=== PATIENT | male | born 1950 | race Two or more races ===

== ENCOUNTER 2019-10-01 18:11 | Inpatient (IN) | payer BC, MEDICAID ==
[~2019-10-01] VITALS: Ht 188 cm; Wt 101.9 kg
--- NOTE | 2019-10-01 18:03 | NUR ---
Telemetry admit from [facility] admitted to Telemetry unit after SBAR received. Patient oriented to Shaneka wheeler RN, unit, room, bed, and unit policies regarding patient care and visiting hours. Patient verbalized understanding. Instructed patient on POC, fall precautions and to call for assistance. Patient verbalized understanding. Patient has 4 incisions located to the abdomen. Dressing is clean,dry and intact. NGT to the left nare is patent and connected to LIS per MD order. Draining green liquid. Patient has a generalized rash on body. Patient stated "I've had it for a little while. It does itch. I think it's just from all of the hospital stuff. I'm not too sure. They gave me Benadryl at the other hospital." Respirations are even and unlabored, no distress noted. Call light within reach.
[~2019-10-01 18:11] MED LIST: ALPR1TAB7 PO; CARI350T22 PO; GEMF600T7 PO; NOR10T PO
--- NOTE | 2019-10-01 18:24 | NUR ---
Contacted Dr. Villafuerte to notify MD of patient's admit Message left for .
--- NOTE | 2019-10-01 18:25 | NUR ---
RE: Generalized body rash Notified Dr. Briones of patient's generalized body rash with report of itching. verbalized understanding. Order received and read back to verify.
[2019-10-01] MEDS ORDERED: NITROGLYCERIN 0.4 MG SL TAB SL PRN (18:30)
[2019-10-01] MEDS ORDERED: MORPHINE SULF INJ 2 MG/ML SYRINGE 1ML IV PRN (18:30)
[2019-10-01] MEDS ORDERED: hydrALAZINE HCL 20 MG/ML VL IV PRN (18:30)
[2019-10-01] MEDS ORDERED: AMIODARONE HCL 900 MG in DEXTROSE 500 ML IV SCH ×2 (18:45→20:15)
[2019-10-01] MEDS: SODIUM CHLORIDE 0.9% 1,000 ML IV SCH (19:04)
[2019-10-01 19:15] LABS: Basophils # (auto) 0.2 uL; Basophils % (auto) 0.8 % (0.0-2.0); Eosinophils # (auto) 0.5 uL; Eosinophils % (auto) 2.6 % (0.0-7.0); Hematocrit 40.7 % (41.0-53.0); Hemoglobin 13.9 g/dL (13.5-17.5); Lymphocytes # (auto) 1.5 uL; Lymphocytes % (auto) 7.6 % (10.0-50.0); Mean Corpuscular Volume 91.2 fL (80.0-100.0); Monocytes # (auto) 2.5 uL; Monocytes % (auto) 12.3 % (0.0-12.0); Neutrophils # (auto) 15.4 uL; Neutrophils % (auto) 76.7 % (37.0-80.0); Platelet Count (auto) 416 10^3/uL (140-450); Red Blood Cells 4.47 10^6/uL (4.5-5.90); Red Cell Distribution Width 13.5 % (11.8-14.3); White Blood Cell 20.1 10^3/uL (4.4-10.8)
--- NOTE | 2019-10-01 19:18 | NUR ---
Care endorsed to CLAUDIA Dalton. Patient resting in bed with even and unlabored respirations, no distress noted. NGT to LIS per MD order. Patient tolerated well. Draining green liquid. Fall precautions in place with call light within reach. Visitors at bedside. Admission endorsed to CLAUDIA Dalton, and roxana Aguilar RN. Both parties verbalized understanding.
--- NOTE | 2019-10-01 19:25 | NUR ---
OPENING NOTE - NOC SHIFT PATIENT IS DIRECT ADMIT BY DR ISRAEL FROM [facility]. PATIENT IS IN BED, BED IS LOCKED AT LOWEST. BED RAILS UP X2 AND HEAD OF BED IS UP >45 DEGREES FOR SAFETY PRECAUTIONS. BEDSIDE TABLE WITHIN REACH, CALL LIGHT WITHIN REACH, PERSONAL BELONGINGS WITHIN REACH. PATIENT HAS CONTINUOUS INTERMITTENT SUCTION NG TUBE TO LEFT NOSTRIL. SUCTION IS PATENT. LIQUID IS DARK GREEN. PATIENT IS RUNNING AMIODARONE DRIP FROM [facility] AT 1MG/MIN; DR ISRAEL IS AWARE. WILL CALL JHONATAN HERRERA TO CLARIFY AMIODARONE DRIP ORDER. WILL CONTINUE TO MONITOR.
[2019-10-01 19:28] LABS: Albumin 2.7 g/dL (3.4-5.0); Calcium 8.6 mg/dL (8.5-10.1); INR 1.07 (0.9-1.15); Potassium 3.7 mmol/L (3.5-5.1)
--- NOTE | 2019-10-01 19:30 | NUR ---
NG LEFT NARE CONNECTED TO LOW CONTINUOUS SUCTION 900 ML DARK GREEN CLEAR LIQUID
[2019-10-01 19:31] LABS: BUN/Creatinine Ratio 26.2; Bilirubin, Total 2.7 mg/dL (0.2-1.0); Total Protein 6.6 g/dL (6.4-8.2)
[2019-10-01 20:00] VITALS: BP 125/75
--- NOTE | 2019-10-01 20:40 | NUR ---
NG LEFT NARE CONNECTED TO LOW CONTINUOUS SUCTION 900 ML DARK GREEN CLEAR LIQUID
--- NOTE | 2019-10-01 20:44 | NUR ---
PAGED TO CLARIFY ORDERS.
--- NOTE | 2019-10-01 21:01 | NUR ---
2ND PAGE TO ADMITTING MD TO CLARIFY AMIODARONE DRIP ORDERS.
--- NOTE | 2019-10-01 21:08 | NUR ---
RECEIVED CALL FROM DR DIAZ COVERING FOR JHONATAN. DR DIAZ STATED THAT SHE WILL CONTACT DR ISRAEL AND CLARIFY HIS ORDERS BECAUSE SHE IS NOT SURE. DR DIAZ STATED THAT SHE WILL CALL ME BACK.
--- NOTE | 2019-10-01 21:14 | NUR ---
DR DIAZ CALLED BACK TO CONFIRM AMIODARONE DRIP TO RUN FOR 6 HOURS FROM WHEN IT STARTED AT [facility] AT 1625 AT 1 MG/MIN THEN AT 0.5MG/MIN
[2019-10-01] MEDS: ONDANSETRON HCL 4 MG/2 ML VIAL IV PRN (21:32)
[2019-10-01] MEDS: HYDROmorphone HCL 2 MG/ML VL IV PRN (21:32)
--- NOTE | 2019-10-01 21:50 | NUR ---
WOUND INCISION PICTURES TO RIGHT ABDOMEN TAKEN WOUND FORM SIGNED AND FILED. PATIENT STATES INCISIONS ARE FROM PROCEDURE DONE AT [facility]. PATIENT IS A DIRECT ADMIT FROM [facility] TODAY.
[2019-10-01] MEDS ORDERED: PRAV20TA3 PO (21:54)
[2019-10-01] MEDS ORDERED: RIVA10TA PO (21:54)
[2019-10-01] MEDS ORDERED: ATEN-60 PO (21:54)
[2019-10-01] MEDS ORDERED: CLON0.1T PO (21:54)
[2019-10-01] MEDS ORDERED: CLON0.2D6 PO (21:54)
[2019-10-01] MEDS ORDERED: EZET10TA22 PO (21:54)
[2019-10-01] MEDS ORDERED: CHOL20007 PO (21:54)
--- NOTE | 2019-10-01 22:00 | NUR ---
NG LEFT NARE CONNECTED TO LOW CONTINUOUS SUCTION 700 ML DARK GREEN CLEAR LIQUID
[2019-10-01 22:10] VITALS: BP 125/75
--- NOTE | 2019-10-01 22:25 | NUR ---
AMIODARONE DRIP AT 0.5 MG/MIN PER MD ORDERS.
--- NOTE | 2019-10-01 22:30 | NUR ---
MRSA NARES SWAB SENT TO LAB
[2019-10-02] VITALS (8 sets, daily range): BP systolic 137–153; BP diastolic 76–147
--- NOTE | 2019-10-02 00:46 | NUR ---
NG LEFT NARE CONNECTED TO LOW CONTINUOUS SUCTION 600 ML DARK GREEN CLEAR LIQUID
[2019-10-02] MEDS: AMIODARONE HCL 900 MG in DEXTROSE 500 ML IV SCH (02:10)
[2019-10-02] MEDS: HYDROmorphone HCL 2 MG/ML VL IV PRN ×4 (02:59→21:59)
[2019-10-02] MEDS: ONDANSETRON HCL 4 MG/2 ML VIAL IV PRN ×3 (02:59→16:02)
--- NOTE | 2019-10-02 03:05 | NUR ---
PAGED FOR DR ISRAEL; DR DIAZ IS DOPE AND FABRIC WORKER FOR DR ISRAEL. DR DIAZ IS AWARE THAT PATIENT HAS BEEN HOLDING HR OF 150's WITH AFIB DR DIAZ STATED TO MONITOR PATIENT BUT NO ORDERS WERE RECEIVED. DR DIAZ AWARE THAT EKG WAS DONE AND THAT PATIENT IS ON AMIODARONE DRIP AT 0.5MG/MIN.
--- NOTE | 2019-10-02 03:05 | NUR ---
NG LEFT NARE CONNECTED TO LOW CONTINUOUS SUCTION 900 ML DARK GREEN CLEAR LIQUID
--- NOTE | 2019-10-02 03:15 | NUR ---
PATIENT UP TO BATHROOM. STEADY GAIT.
--- NOTE | 2019-10-02 05:45 | NUR ---
NG LEFT NARE CONNECTED TO LOW CONTINUOUS SUCTION 850 ML DARK GREEN CLEAR LIQUID.
[2019-10-02 06:07] LABS: Basophils # (auto) 0 uL; Basophils % (auto) 0.3 % (0.0-2.0); Eosinophils # (auto) 0.4 uL; Eosinophils % (auto) 2.3 % (0.0-7.0); Hematocrit 38.5 % (41.0-53.0); Lymphocytes # (auto) 1.1 uL; Lymphocytes % (auto) 6.5 % (10.0-50.0); Mean Corpuscular Hemoglobin 30.5 pg (28.0-32.0); Mean Corpuscular Hgb Conc. 33.8 g/dL (32.0-36.0); Mean Corpuscular Volume 90.4 fL (80.0-100.0); Monocytes # (auto) 1.8 uL; Monocytes % (auto) 11.1 % (0.0-12.0); Neutrophils # (auto) 13.1 uL; Neutrophils % (auto) 79.8 % (37.0-80.0); Nucleated Red Blood Cells % 0.1 %; Platelet Count (auto) 410 10^3/uL (140-450); Red Blood Cells 4.26 10^6/uL (4.5-5.90); Red Cell Distribution Width 13.6 % (11.8-14.3); White Blood Cell 16.4 10^3/uL (4.4-10.8)
[2019-10-02] MEDS: SODIUM CHLORIDE 0.9% 1,000 ML IV SCH ×2 (06:12→19:30)
[2019-10-02 06:27] LABS: Albumin 2.4 g/dL (3.4-5.0); Potassium 3.1 mmol/L (3.5-5.1)
[2019-10-02 06:34] LABS: BUN/Creatinine Ratio 27.1; Bilirubin, Total 2.5 mg/dL (0.2-1.0); Total Protein 5.7 g/dL (6.4-8.2)
--- NOTE | 2019-10-02 07:20 | NUR ---
ENDORSED PATIENT CARE TO DAY SHIFT NURSE
[2019-10-02] MEDS ORDERED: fentaNYL CITRATE 100 MCG/2 ML VL IV ONE (07:30)
[2019-10-02] MEDS ORDERED: LIDOCAINE VISCOUS 2% 15ML UD PO ONE (07:30)
[2019-10-02] MEDS ORDERED: MIDAZOLAM HCL 1MG/1ML-2 ML VIAL IV ONE (07:30)
--- NOTE | 2019-10-02 07:30 | NUR ---
PT AWAKE, ALERT, ORIENTED x4 REPORTS DISCOMFORT TO ABDOMINAL INCISIONS, 4 IN TOTAL, ONE INCISION OPEN TO AIR. 3 DRESSINGS CDI ABDOMINAL BINDER IN PLACE. NGT TO LEFT NARES TO LCS 400ML OF BROWN-GREEN FLUID IN COLLECTING CHAMBER. PT HR: 153 DENIES CHEST PAIN, PALPITATIONS. PT ON AMIODARONE DRIP AT 16.6ML/HR. EFFORTLESS BREATHING ON ROOM AIR. BED LOCKED AND IN LOWEST POSITION, CALL LIGHT WITHIN REACH. WILL CONTINUE TO MONITOR.
--- NOTE | 2019-10-02 08:00 | NUR ---
PT TRANSPORTED TO [facility] FOR PLANNED PROCEDURE. PT TRANSPORTED WITH AMIODARONE AND NS, NGT CLAMPED.
--- NOTE | 2019-10-02 09:10 | NUR ---
PT BACK FROM [facility]. APPEARS CALM, NO ACUTE DISTRESS NOTED. HR: 130's REPORTS PAIN TO ABDOMEN AND NAUSEA, NGT TO LEFT NARES CONNECTED TO LCS PER ORDER. IV FLUIDS RESUMED AND KCL INFUSION INITIATED PER EMAR. 0945: PT MEDICATED FOR PAIN AND NAUSEA PER EMAR. TOLERATED WELL. CALL LIGHT WITHIN REACH. FAMILY AT BEDSIDE, WILL CONTINUE TO MONITOR.
[2019-10-02] MEDS: POTASSIUM CHL 20MEQ/100ML 100 ML IV SCH ×3 (09:18→14:05)
[2019-10-02] MEDS: ENOXAPARIN SOD 80 MG/0.8ML SYRINGE SC SCH ×2 (09:21→21:53)
--- NOTE | 2019-10-02 10:25 | NUR ---
WOUND CARE NOTE: Wound care into see patient per wound care request regarding abdominal incision that are noted present on admission. Bedside nurse took photograph of patient's wounds upon admission for reference. Patient is 69 years old male admitted for Chest Pain. Patient is resting in bed in Rm. 292B. Patient is awake, alert and oriented. He's self turn and reposition and his Jorge score is 19. Patient is in no stated pain at this time. Patient came in with four stapled incision to medial and Rt abdominal area s/p cholecystectomy at [facility] " a week ago". Wounds are well approximated with isaac intact, misty wound is red with some ecchymotic area, minimal serosanguineous drainage noted on dressing, no odor noted. Bedside nurse initiated cleaning wounds with NS and covered with dry sterile dressing. No other wound noted. Patient tolerated well. No further wound care monitoring needed at this time. RECOMMENDATION: Nursing to continue with Daily/PRN dressing change to abdominal wounds per MD order, redistribute pressure points with pillows, reconsult for active wound, pressure injury, low Jorge score of 12 and below. Addendum: 10/02/19 at 1451 by Nova Reddy RN Amended: Links added.
--- NOTE | 2019-10-02 13:59 | NUR ---
PER DR. HENLEY AMIODARONE DRIP TO CONTINUE AT CURRENT RATE. RECEIVED ORDER FOR IV CARDIZEM AND COMMUNICATION ORDERS FOR POTASSIUM AND MAGNESIUM LABORATORY Q12H ORDERS RECEIVED AND READ BACK. WILL CONTINUE TO MONITOR.
[2019-10-02] MEDS: DILTIAZEM HCL 25 MG/5 ML VIAL IV SCH ×3 (14:40→23:12)
--- NOTE | 2019-10-02 16:30 | NUR ---
PATIENT HAD BM LOOSE WITH SEDIMENTS- BROWN-GREEN IN APPEARANCE. WILL CONTINUE TO MONITOR.
--- NOTE | 2019-10-02 19:00 | NUR ---
Opening Shift Note Assumed care of patient, awake and alert. No S/S of distress/SOB or pain. Instructed on POC and to call for assist PRN, will continue to monitor for changes Q1hr and PRN. Bed in lowest position possible. Call light within reach. Pt NPO with only ice chips. Cardioversion in the morning planned.
--- NOTE | 2019-10-02 19:30 | NUR ---
Pt took off her own telemetry box. Addendum: 10/02/19 at 2128 by Breonna Madrigal RN LEIGHANN PT, pt is listening per protocol.
--- NOTE | 2019-10-02 19:45 | NUR ---
AMA Note [facility] states they want to leave the hospital Against Medical Advice (AMA). Patient encouraged to stay for further treatment/stabilization. Offered to the pt to call doctor to come see her, but pt and family stated that they could not wait anymore and just wanted to leave. Family stated that she had a doctors appointment in the morning and needed to go home PEREZ. Notified of patient's wishes. Patient advised of the risks and benefits of leaving AMA. Patient verbalized understanding. Patient encouraged to return to the ER if symptoms do not improve or worsen. Addendum: 10/02/19 at 2127 by Breonna Madrigal RN WRONG PT, pt is here doing tx as directed per doctor.
[2019-10-02 22:32] LABS: Magnesium 1.9 mg/dL (1.6-2.6)
[2019-10-02 22:39] LABS: Potassium 2.9 mmol/L (3.5-5.1)
--- NOTE | 2019-10-02 23:00 | NUR ---
Called Dr Villafuerte Pt had lab draws for Magnesium levels and Potassium levels at 2200. Magnesium level came back 1.9, which was below the intended level of 2.0 Potassium level cam back 2.9, which was below the intended level of 4.[address] Villafuerte these levels as well as a heart rate in the 150s. Dr Villafuerte orders 60mEq Potassium IV, to be repeated at 0600, 2mg magnesium IV, Lopressor 5mg IV q2h unless SBP goes below 100, and the okay to give Cardizem at 2300, 1 hour earlier than scheduled. While giving the Cardizem, pts HR went from 151 to 130. Will continue to monitor pts HR and BP.
[2019-10-02] MEDS: MAGNESIUM SULFATE 1GM/100ML 100 ML IV SCH (23:25)
--- NOTE | 2019-10-02 23:40 | NUR ---
PT complained of itching. Pt stated that he had itching on his legs and arms. Pt stated that he has had this since being in the hospital. Gave pt Benadryl and antifungal cream to help with the itching.
[2019-10-02] MEDS: diphenhdrAMINE HCL 50 MG/1 ML VL IV PRN (23:46)
[2019-10-03] MEDS: METOPROLOL TARTRATE 1MG/1ML-5ML VIAL IV SCH ×12 (00:18→22:01)
[2019-10-03] MEDS: MAGNESIUM SULFATE 1GM/100ML 100 ML IV SCH (00:41)
[2019-10-03] MEDS: POTASSIUM CHL 20MEQ/100ML 100 ML IV SCH ×3 (01:58→06:39)
--- NOTE | 2019-10-03 02:00 | NUR ---
Potassium started at 0200 pt complained of burning pain upon starting the K-rider, lowered starting rate to 20ml/hr. Waited until burning subsided and slowly increased. Pt was able to tolerate 50ml/hr 15 minutes after starting the k-rider. Will continue to monitor pt.
[2019-10-03] MEDS: AMIODARONE HCL 900 MG in DEXTROSE 500 ML IV SCH (02:13)
[2019-10-03] MEDS: ONDANSETRON HCL 4 MG/2 ML VIAL IV PRN ×4 (03:03→20:05)
[2019-10-03] MEDS: HYDROmorphone HCL 2 MG/ML VL IV PRN ×4 (03:09→20:06)
--- NOTE | 2019-10-03 04:20 | NUR ---
Started second K-rider bag Pt complained of burning sensation upon starting the second k-rider, lowered starting rate to 20ml/hr. Waited until burning subsided and slowly increased. Pt tolerated 50ml/hr after about 15 minutes after starting the k-rider. Will continue to monitor pt.
--- NOTE | 2019-10-03 04:25 | NUR ---
Antifungal/itching cream applied Pt complaint of itching on his right arm. Applied antifungal anti-itching cream to area. Pt stated that the cream is helping.
[2019-10-03 05:11] LABS: Basophils # (auto) 0.1 uL; Basophils % (auto) 0.8 % (0.0-2.0); Eosinophils # (auto) 0.8 uL; Eosinophils % (auto) 5.8 % (0.0-7.0); Hematocrit 39.1 % (41.0-53.0); Hemoglobin 13.2 g/dL (13.5-17.5); Lymphocytes # (auto) 1.4 uL; Lymphocytes % (auto) 9.8 % (10.0-50.0); Mean Corpuscular Hemoglobin 30.8 pg (28.0-32.0); Mean Corpuscular Hgb Conc. 33.6 g/dL (32.0-36.0); Mean Corpuscular Volume 91.7 fL (80.0-100.0); Monocytes # (auto) 1.7 uL; Monocytes % (auto) 12.1 % (0.0-12.0); Neutrophils # (auto) 10.2 uL; Neutrophils % (auto) 71.5 % (37.0-80.0); Nucleated Red Blood Cells % 0.1 %; Platelet Count (auto) 443 10^3/uL (140-450); Red Blood Cells 4.27 10^6/uL (4.5-5.90); Red Cell Distribution Width 13.4 % (11.8-14.3); White Blood Cell 14.2 10^3/uL (4.4-10.8)
[2019-10-03 05:30] LABS: Potassium 3.4 mmol/L (3.5-5.1)
[2019-10-03 05:37] LABS: Albumin 2.5 g/dL (3.4-5.0); BUN/Creatinine Ratio 30.4; Bilirubin, Total 2.2 mg/dL (0.2-1.0); Calcium 7.8 mg/dL (8.5-10.1); Total Protein 6.1 g/dL (6.4-8.2)
[2019-10-03] MEDS: DILTIAZEM HCL 25 MG/5 ML VIAL IV SCH ×3 (05:41→17:32)
[2019-10-03 05:52] VITALS: BP 157/92
--- NOTE | 2019-10-03 07:00 | NUR ---
Closing note Pt awake and alert. Pt stated that she had pain, gave tylenol with codeine, Will continue to monitor. Pt is lowest possible position with 2xrails up. Call light within reach. Will endorse pt to day shift RN. Addendum: 10/03/19 at 0702 by Breonna Madrigal RN WRONG PT: correct narrative as follows. Pt asleep, no s/s of SOB or pain. pt in lowest position possible with 2x rails up. Call light within reach. Running last k-rider to total 60mEq as ordered per MD. Will endorse pt to day shift RN.
[2019-10-03] MEDS: SODIUM CHLORIDE 0.9% 1,000 ML IV SCH ×2 (08:31→20:39)
--- NOTE | 2019-10-03 08:50 | NUR ---
Zofran Inj given for nausea, Dilaudid Inj 0.5 mg given for severe pain.
--- NOTE | 2019-10-03 08:50 | NUR ---
BP = 165/93. Apresoline Inj given for SBP>160.
[2019-10-03 09:00] VITALS: BP 165/93
--- NOTE | 2019-10-03 09:02 | NUR ---
Richard Mckinley called back. ordered another abdominal x ray for today. Page her for the results.
--- NOTE | 2019-10-03 09:15 | NUR ---
Dr. Villafuerte at bedside. explained to patient and family that patient may aspirate if he's still having NGT output, will find out this afternoon if Cardioversion will proceed today. Dr. Villafuerte ordered to follow up with Richard Mckinley regarding GI, give only Lovenox if okay with Dr. Kowalski.
--- NOTE | 2019-10-03 09:38 | NUR ---
Dr. Rodriguez called. made aware Richard Mckinley has seen the patient for GI, ordered Abdominal x ray. Dr. Villafuerte will decide this afternoon if he will do the Cardioversion today. Dr. Rodriguez ordered chest x ray, Rocephin 1 gm IVPB daily, UA, Potassium and magnesium level.
[2019-10-03] MEDS: ENOXAPARIN SOD 80 MG/0.8ML SYRINGE SC SCH ×2 (10:00→22:00)
[2019-10-03 10:10] LABS: Urine Amorphous Crystal FEW /hpf (None Seen); Urine Bacteria NONE SEEN /hpf (None Seen); Urine Blood Negative /uL (Negative); Urine Specific Gravity 1.017 (1.001-1.035); Urine WBC 2 /hpf (0 - 3)
[2019-10-03 10:10] LABS: Magnesium 2.2 mg/dL (1.6-2.6); Potassium 3.6 mmol/L (3.5-5.1)
--- NOTE | 2019-10-03 11:28 | NUR ---
Makenna Robb at bedside. ordered Lactic Acid, Urgent US Abdomen.
--- NOTE | 2019-10-03 11:32 | NUR ---
Called Richard Mckinley Spoke with Ludmila. Ludmila to page Dr. Kowalski to call back regarding the Abdomen X ray results.
--- NOTE | 2019-10-03 12:16 | NUR ---
Called Pharmacy for Lopressor IV and Cardizem Inj, not available in the Pyxis.
--- NOTE | 2019-10-03 12:35 | NUR ---
Patient walked to the bathroom. Daughter at bedside.
--- NOTE | 2019-10-03 12:44 | NUR ---
Patient had a bowel movement in the bathroom. Large, soft dark brown stools noted in the toilet bowl. Daughter at bedside.
--- NOTE | 2019-10-03 12:50 | NUR ---
BP = 149/83, Heart Rate = 151, RR = 18, O2 Sat = 95% on room air. Daughter at bedside.
[2019-10-03 13:00] VITALS: BP 134/76
--- NOTE | 2019-10-03 14:00 | NUR ---
Transferred patient via bed from Room 292B to Room 286B.
--- NOTE | 2019-10-03 14:15 | NUR ---
Patient stated he's nauseous, in severe abdominal pain. Zofran Inj given for nausea, Dilaudid Inj given for severe pain. Daughter at bedside.
--- NOTE | 2019-10-03 14:53 | NUR ---
Called Richard Mckinley Spoke with Clara. Roberts to page Dr. Kowalski again.
--- NOTE | 2019-10-03 15:10 | NUR ---
Richard Mckinley called back. made aware patient had a bowel movement today, large soft to loose stools noted. Read the Abdominal x ray results. Dr. Kowalski ordered another abdominal x ray for tomorrow, continue on NGT on low intermittent suction, NPO except ice chips.
[2019-10-03 16:29] VITALS: BP 150/88
--- NOTE | 2019-10-03 16:40 | NUR ---
Patient is upset, wanted to remove his NG tube, he's hungry. Daughter is angry. Explained to patient Dr. Kowalski, Antionette ordered to keep him on nothing by mouth except ice chips, keep on NG Tube on low intermittent suction, will have another abdominal x ray tomorrow.
--- NOTE | 2019-10-03 16:50 | NUR ---
Daughter is angry that it's noisy in the room, there's a kid keep running in the room. Daughter said her father has to rest but unable to, she wants her father to be transferred to another room. Female family member of Bed A heard and verbalized "Are you talking about my son? He's autistic!" Patient Bed B's daughter stated that she should have left the kid at home. Called Charge Nurse Gutierrez. Called Security.
--- NOTE | 2019-10-03 17:15 | NUR ---
NG Tube on low intermittent suction. About 800 ml of dark, greenish fluid emptied from the NG Tube canister. Changed the NGT canister. Daughter at bedside.
--- NOTE | 2019-10-03 17:37 | NUR ---
Dark, greenish fluid at 200 ml on NG Tube canister. NG Tube on low intermittent suction.
--- NOTE | 2019-10-03 19:00 | NUR ---
Opening Shift Note Assumed care of patient, awake and alert. Pt stated that he had a pain of 10/10 in his abdomen region, no SOB noted. NG tube on continuous suction and pulling green fluid out. Instructed on POC and to call for assist PRN, will continue to monitor for changes Q1hr and PRN. Bed in lowest possible position, call light within reach.
[2019-10-03 20:00] VITALS: BP 117/79
[2019-10-03 21:36] VITALS: BP 117/70
[2019-10-03 22:44] LABS: Potassium 3.8 mmol/L (3.5-5.1)
[2019-10-04] MEDS: HYDROmorphone HCL 2 MG/ML VL IV PRN ×6 (00:03→20:41)
[2019-10-04] MEDS: METOPROLOL TARTRATE 1MG/1ML-5ML VIAL IV SCH ×12 (00:03→22:50)
[2019-10-04] MEDS: DILTIAZEM HCL 25 MG/5 ML VIAL IV SCH ×3 (00:04→12:45)
--- NOTE | 2019-10-04 00:10 | NUR ---
Called/paged Dr. Garcia, who is covering Dr. Briones called re: Potassium of 3.6 and NGT outuput of brown/red liquid and order to hold lovenox. Received orders, hold lovenox and get H&H. Continue care.
[2019-10-04] MEDS: AMIODARONE HCL 900 MG in DEXTROSE 500 ML IV SCH (02:07)
[2019-10-04 02:44] LABS: Hematocrit 37.2 % (41.0-53.0); Hemoglobin 12.5 g/dL (13.5-17.5)
[2019-10-04] MEDS: ONDANSETRON HCL 4 MG/2 ML VIAL IV PRN ×5 (04:13→22:51)
[2019-10-04 05:40] VITALS: BP 150/96
--- NOTE | 2019-10-04 06:10 | NUR ---
Code Assist note. Assisted patient to the rest room and back to bed. As patient was getting to bed, patient started losing consciousness. Could not assist patient back to bed so this RN assisted patient to floor in a sitting position. Patient determined to be at high risk for Code Blue due to cardiac/respiratory status. Code assist called. Addendum: 10/04/19 at 0657 by JYOTI MALDONADO RN RN WRONG PATIENT!
--- NOTE | 2019-10-04 06:56 | NUR ---
NG output Patient had a total of 4L of Output throughout the shift.
--- NOTE | 2019-10-04 07:00 | NUR ---
Closing note endorsed pt over to CLAUDIA Mena.
[2019-10-04 08:00] VITALS: BP 152/87
[2019-10-04] MEDS: SODIUM CHLORIDE 0.9% 1,000 ML IV SCH ×2 (08:16→22:50)
[2019-10-04] MEDS: cefTRIAXone 1GM/50ML D5W 50 ML IV SCH (08:16)
[2019-10-04 09:00] VITALS: BP 152/87
[2019-10-04] MEDS: ENOXAPARIN SOD 80 MG/0.8ML SYRINGE SC SCH ×3 (10:00→22:50)
[2019-10-04 10:32] LABS: Potassium 3.5 mmol/L (3.5-5.1)
[2019-10-04 13:00] VITALS: BP 147/89
--- NOTE | 2019-10-04 14:57 | NUR ---
NUTRITION ASSESSMENT NOTES Please refer to link notes of nutrition screen form filed under the intervention section of the plan of care for further details. Est. Needs: 2000 kcal to 2500 kcal (20-25 kcal/kgBW), 80 gms to 101 gms pro (0.8-1.0 gms/kgBW). Will continue to monitor pertinent labs and reassess nutrient need prn Thank you. Addendum: 10/04/19 at [address] Amended: Links added.
[2019-10-04 17:00] VITALS: BP 149/79
[2019-10-04] MEDS: POTASSIUM CHL 20MEQ/100ML 100 ML IV SCH ×2 (17:50→20:07)
[2019-10-04] MEDS: DILTIAZEM HCL 50 MG/10 ML VIAL IV SCH (18:00)
--- NOTE | 2019-10-04 18:00 | NUR ---
PER DR LORY PUGH AND TARA JHAVERI WERE CALLED TO REEVALUATE THIS PATIENT
--- NOTE | 2019-10-04 19:30 | NUR ---
Opening Shift Note Assumed care of patient, awake and alert. No S/S of distress/SOB or pain. NG Tube in place on LIS, 400ml output on NG canister. Amiodarone drip running at 16ml per hour. Heart rate at 116bpm Afib on tele monitor. Instructed on POC and to call for assist PRN, will continue to monitor for changes Q1hr and PRN. Side rails up x2. Bed locked in lowest position. Call light within reach. Bed alarm on for safety precaution.
--- NOTE | 2019-10-04 22:24 | NUR ---
Called/paged Dr. Garcia called re:Potassium of 3.9 . Waiting for call back. Continue care.
--- NOTE | 2019-10-04 22:30 | NUR ---
returned call Dr. Garcia returned call, updated on patient status and reason for call of Potassium of 3.9, No orders received. Continue care.
[2019-10-04] MEDS: MAGNESIUM SULFATE 1GM/100ML 100 ML IV SCH (22:50)
[2019-10-04 22:53] LABS: Potassium 3.9 mmol/L (3.5-5.1)
[2019-10-04 23:59] VITALS: BP 115/71
[2019-10-05] MEDS: METOPROLOL TARTRATE 1MG/1ML-5ML VIAL IV SCH ×12 (00:45→22:19)
[2019-10-05] MEDS: MAGNESIUM SULFATE 1GM/100ML 100 ML IV SCH (00:45)
[2019-10-05] MEDS: HYDROmorphone HCL 2 MG/ML VL IV PRN ×5 (00:45→18:01)
[2019-10-05] MEDS: DILTIAZEM HCL 50 MG/10 ML VIAL IV SCH ×5 (00:46→18:00)
[2019-10-05] MEDS: AMIODARONE HCL 900 MG in DEXTROSE 500 ML IV SCH (02:36)
[2019-10-05] MEDS: ONDANSETRON HCL 4 MG/2 ML VIAL IV PRN ×4 (04:51→23:55)
[2019-10-05 05:43] VITALS: BP 155/77
[2019-10-05 06:37] LABS: Basophils # (auto) 0.1 uL; Basophils % (auto) 0.5 % (0.0-2.0); Eosinophils # (auto) 0.6 uL; Eosinophils % (auto) 3.7 % (0.0-7.0); Hematocrit 40.7 % (41.0-53.0); Hemoglobin 13.5 g/dL (13.5-17.5); Lymphocytes % (auto) 6.3 % (10.0-50.0); Mean Corpuscular Hemoglobin 30.7 pg (28.0-32.0); Mean Corpuscular Hgb Conc. 33.3 g/dL (32.0-36.0); Mean Corpuscular Volume 92.3 fL (80.0-100.0); Monocytes # (auto) 1.1 uL; Monocytes % (auto) 6.7 % (0.0-12.0); Neutrophils # (auto) 13.7 uL; Neutrophils % (auto) 82.8 % (37.0-80.0); Platelet Count (auto) 404 10^3/uL (140-450); Red Blood Cells 4.41 10^6/uL (4.5-5.90); Red Cell Distribution Width 13.4 % (11.8-14.3); White Blood Cell 16.6 10^3/uL (4.4-10.8)
[2019-10-05 07:09] LABS: Calcium 7.5 mg/dL (8.5-10.1); Magnesium 2.4 mg/dL (1.6-2.6)
[2019-10-05 07:11] LABS: BUN/Creatinine Ratio 24.6
--- NOTE | 2019-10-05 07:12 | NUR ---
NG tube output Emptied at total of 2,400ml of liquid dark brown gastric content from NG canister throughout the shift.
--- NOTE | 2019-10-05 07:17 | NUR ---
Endorsed care to day shift RN.
--- NOTE | 2019-10-05 07:30 | NUR ---
Opening Shift Note Assumed care of patient, awake and alert. No S/S of distress/SOB. NGtube to left nare. Pain management plan discussed with patient. Instructed on POC and to call for assist PRN, will continue to monitor for changes Q1hr and PRN.
[2019-10-05 08:00] VITALS: BP 150/87
--- NOTE | 2019-10-05 08:00 | NUR ---
Contacted Doctor Rodriguez concerning the patient's potassium level. Orders for potassium replacement obtained.
[2019-10-05 09:00] VITALS: BP 150/87
[2019-10-05] MEDS: cefTRIAXone 1GM/50ML D5W 50 ML IV SCH (09:29)
[2019-10-05] MEDS: SODIUM CHLORIDE 0.9% 1,000 ML IV SCH ×2 (09:32→22:20)
--- NOTE | 2019-10-05 09:55 | NUR ---
Ng tube dislodged. after inspecting the sound that was reported by director non profit, it was found that the ng tube has slid out of the stomach. the sound was coming from the tip of tube just in the back of the mouth. Tried to advance the tube but the patient refused placement. the ng tube ended up coming out through the mouth. at that point the patient refused any further attempt at ng tube placement. patient informed that if he cannot tolerate not having an ng tube then we will have to place one.
[2019-10-05 09:59] LABS: Magnesium 2.1 mg/dL (1.6-2.6); Potassium 3.2 mmol/L (3.5-5.1)
[2019-10-05] MEDS: POTASSIUM CHL 20MEQ/100ML 100 ML IV SCH ×2 (11:26→13:36)
[2019-10-05] MEDS: ENOXAPARIN SOD 80 MG/0.8ML SYRINGE SC SCH ×2 (11:27→22:20)
[2019-10-05 13:00] VITALS: BP 148/89
[2019-10-05 17:00] VITALS: BP 147/85
--- NOTE | 2019-10-05 18:00 | NUR ---
Patient tolerating Dinner. some nausea reported, but there are no incidents of vomiting today. Will continue to monitor the patient.
--- NOTE | 2019-10-05 19:30 | NUR ---
RECEIVED PT FROM DAY RN POC REVIEWED
[2019-10-05] MEDS: diphenhdrAMINE HCL 50 MG/1 ML VL IV PRN (20:20)
--- NOTE | 2019-10-05 20:20 | NUR ---
PT C/O ITCHING ON BOTH ARMS AND LEGS, WHICH ARE REDDENED, BENADRYL GIVEN ORDERED
--- NOTE | 2019-10-05 20:34 | NUR ---
ORDERS RECEIVED FROM DR GUEVARA
[2019-10-05] MEDS: HYDROcodone-ACET 5/325MG TAB PO PRN (22:45)
[2019-10-05 22:54] LABS: Magnesium 1.9 mg/dL (1.6-2.6); Potassium 3.1 mmol/L (3.5-5.1)
--- NOTE | 2019-10-05 23:05 | NUR ---
C/O ABD PAIN 02/11 MEDICATED WITH NORCO ORDERED
[2019-10-06] VITALS (7 sets, daily range): BP systolic 112–175; BP diastolic 70–100
[2019-10-06] MEDS: DILTIAZEM HCL 50 MG/10 ML VIAL IV SCH ×4 (00:24→18:33)
--- NOTE | 2019-10-06 00:42 | NUR ---
UP TO BATHROOM LARGE BROWN LIQUID STOOL Signed: 10/06/19 at 0043 by Tiffany Brenner RN
[2019-10-06] MEDS: METOPROLOL TARTRATE 1MG/1ML-5ML VIAL IV SCH ×13 (01:18→23:31)
[2019-10-06] MEDS: MAGNESIUM SULFATE 1GM/100ML 100 ML IV SCH ×2 (01:46→03:27)
--- NOTE | 2019-10-06 01:52 | NUR ---
MAG JORDANER 2GM STARTED ORDERED
[2019-10-06] MEDS: AMIODARONE HCL 900 MG in DEXTROSE 500 ML IV SCH (02:11)
[2019-10-06] MEDS: HYDROcodone-ACET 5/325MG TAB PO PRN ×2 (04:36→10:39)
--- NOTE | 2019-10-06 05:04 | NUR ---
pt up to bathroom had large liquid bm
[2019-10-06] MEDS: ONDANSETRON HCL 4 MG/2 ML VIAL IV PRN ×3 (05:34→21:54)
--- NOTE | 2019-10-06 06:56 | NUR ---
REPORT GIVEN TO AM NURSE POC REVIEWED
--- NOTE | 2019-10-06 07:05 | NUR ---
DR GUEVARA PAGED REGARDING PT POTASSIUM LEVEL 3.1
--- NOTE | 2019-10-06 07:30 | NUR ---
Opening Shift Note Assumed care of patient, awake and alert. No S/S of distress/SOB. Pain and nausea reported. Educated patient on medication regimen for today. Instructed on POC and to call for assist PRN, will continue to monitor for changes Q1hr and PRN.
--- NOTE | 2019-10-06 07:42 | NUR ---
Dr. Rodriguez contacted to get orders for potassium replacement per patient's lab value and communication order.
[2019-10-06] MEDS ORDERED: POTASSIUM CHL 20 Meq TABLET PO ONE (08:00)
[2019-10-06] MEDS: cefTRIAXone 1GM/50ML D5W 50 ML IV SCH (09:35)
[2019-10-06] MEDS: ENOXAPARIN SOD 80 MG/0.8ML SYRINGE SC SCH ×2 (09:36→20:52)
[2019-10-06] MEDS ORDERED: IOHEXOL 300 MG/ML 100ML BOTTLE IJ ONE (09:37)
[2019-10-06] MEDS: POTASSIUM CHL 20MEQ/100ML 100 ML IV SCH ×2 (10:30→12:22)
[2019-10-06] MEDS: SODIUM CHLORIDE 0.9% 1,000 ML IV SCH ×2 (11:11→23:17)
--- NOTE | 2019-10-06 11:30 | NUR ---
IV removal IV DC'd with clean sterile technique, catheter fully intact. Pressure dressing applied to site. Patient tolerated well. NOTE: RED AND TEDER TO TOUCH.
[2019-10-06] MEDS ORDERED: POLYETHYLENE GLYCOL 17 GM PWDR PO ONE (11:45)
[2019-10-06] MEDS ORDERED: VANCOMYCIN PER PHARMACY 0 MG IV SCH (11:45)
[2019-10-06] MEDS ORDERED: METOCLOPRAMIDE HCL 5MG/ml INJ 2ml VIAL IV ONE (11:45)
[2019-10-06] MEDS ORDERED: HYDROcodone-ACET 10/325MG TAB PO PRN (11:45)
[2019-10-06] MEDS ORDERED: SENNA 8.6 MG TAB PO ONE (11:45)
--- NOTE | 2019-10-06 11:55 | NUR ---
SPOKE WITH DR. PUGH CONCERNING THIS PATIENT PER DR. GUEVARA'S REQUEST. DR. PUGH SAYS THAT DR. YOUNG NEEDS TO SEE THE PATIENT.
--- NOTE | 2019-10-06 12:00 | NUR ---
Spoke with Dr. Villafuerte. Informed him that the patient is on clear liquid diet and tolerating it. Dr. Villafuerte said that as long as the patient is tolerating a diet he will plan to do the Cardioversion tomorrow 2/3. keep patient NPO after midnight. No further orders obtained.
[2019-10-06] MEDS: diphenhdrAMINE HCL 50 MG/1 ML VL IV PRN ×2 (12:18→18:34)
[2019-10-06] MEDS: VANCOMYCIN 1GM/250ML 250 ML IV SCH (14:14)
--- NOTE | 2019-10-06 15:42 | NUR ---
spoke with Dr. Barba. He informed me that he cannot see this patient because he does not have privileges here at [facility]. he said that if they want him to be see, the patient would need to be moved to either [facility] or [facility]
--- NOTE | 2019-10-06 17:14 | NUR ---
IV removal IV DC'd with clean sterile technique, catheter fully intact. Pressure dressing applied to site. Patient tolerated well. NOTE: signs of infiltration to iv site and patient reports burning.
[2019-10-06 18:30] LABS: Lymphocytes # (auto) 1.9 uL
[2019-10-06 18:33] LABS: Basophils # (auto) 0.1 uL; Basophils % (auto) 0.5 % (0.0-2.0); Eosinophils # (auto) 0.9 uL; Eosinophils % (auto) 4.9 % (0.0-7.0); Hematocrit 40.5 % (41.0-53.0); Hemoglobin 13.5 g/dL (13.5-17.5); Lymphocytes % (auto) 10.5 % (10.0-50.0); Mean Corpuscular Hemoglobin 30.6 pg (28.0-32.0); Mean Corpuscular Hgb Conc. 33.4 g/dL (32.0-36.0); Mean Corpuscular Volume 91.6 fL (80.0-100.0); Monocytes # (auto) 1.5 uL; Neutrophils # (auto) 13.9 uL; Neutrophils % (auto) 76.1 % (37.0-80.0); Platelet Count (auto) 483 10^3/uL (140-450); Red Blood Cells 4.42 10^6/uL (4.5-5.90); Red Cell Distribution Width 13.4 % (11.8-14.3); White Blood Cell 18.3 10^3/uL (4.4-10.8)
[2019-10-06 18:55] LABS: Calcium 7.6 mg/dL (8.5-10.1); Potassium 3.4 mmol/L (3.5-5.1)
[2019-10-06 18:57] LABS: BUN/Creatinine Ratio 13.1
--- NOTE | 2019-10-06 19:25 | NUR ---
Opening Shift Note Assumed care of patient, awake and alert. No S/S of distress/SOB or pain reported at this time, dressing to abdomen cdi, bowel sounds hypoactive states " I had 3-4 bowel movements today". Instructed on POC and to call for assist PRN, call light within reach, bed alarm on, IV patent to right hand 22g infusing Amiodarone @ 16.66ml/hr, site patent, will continue to monitor for changes Q1hr and PRN.
--- NOTE | 2019-10-06 20:30 | NUR ---
IV insertion IV access obtained, via clean sterile technique by inserting 22 gauge catheter at Left wrist after 2 attempt. IV secured properly. No trauma to site. Patient tolerated well. Addendum: 10/06/19 at 2250 by Candy Hays RN RIGHT WRIST
[2019-10-06] MEDS: HYDROcodone-ACET 10/325MG TAB PO PRN (20:50)
[2019-10-06] MEDS ORDERED: SENNA 8.6 MG TAB PO SCH (22:00)
--- NOTE | 2019-10-06 22:13 | NUR ---
REPORT GIVEN TO TRACY LISA NURSE Patient LISA status and transferred EMMA STEVENS transferred to via [facility] on radiographer cardiac catheterization. All patient medications and personal belongings transferred with patient to receiving floor. Patient care transferred to [place], patient AXOX4, breathing even and unlabored, no distress noted, IV patent to right wrist infusing amiodarone as ordered, will notify family
--- NOTE | 2019-10-06 22:19 | NUR ---
CALLED FAMILY TRACY NO ANSWER, LEFT MESSAGE REGARDING ROOM CHANGE
--- NOTE | 2019-10-06 22:20 | NUR ---
Received Pt from [facility] Pt transferred by bed, awake and alert. Breathing even and nonlabored, on RA, no s/s of distress. 22G IV saline lock at right wrist, flushed well, CDI site. Skin generalized with rash, c/o mild itching, will give Benadryl as order if due. Due to void. Bed in low position, call light within reach, fall and safety precaution in place, all alarms are audible. Instruct on POC and will continue to monitor q1hr and prn.
--- NOTE | 2019-10-06 22:30 | NUR ---
OOB, elimination Pt walked to the restroom for BM. Pt voided clear yellowish, no BM. Pt passed gases. Stable gait, no lightheadedness. HE showed A Fib rate increased from low 100's at rest to 130-140's with activities. Continue care.
[2019-10-07] MEDS: METOPROLOL TARTRATE 1MG/1ML-5ML VIAL IV SCH ×8 (00:18→13:54)
[2019-10-07] MEDS: diphenhdrAMINE HCL 50 MG/1 ML VL IV PRN (00:21)
[2019-10-07] MEDS: VANCOMYCIN 1GM/250ML 250 ML IV SCH (01:21)
[2019-10-07] MEDS: AMIODARONE HCL 900 MG in DEXTROSE 500 ML IV SCH (02:16)
[2019-10-07 04:00] VITALS: BP 122/77
[2019-10-07] MEDS: HYDROcodone-ACET 10/325MG TAB PO PRN ×4 (04:17→21:03)
[2019-10-07 05:12] LABS: Basophils # (auto) 0.1 uL; Basophils % (auto) 0.7 % (0.0-2.0); Eosinophils # (auto) 0.9 uL; Eosinophils % (auto) 5.4 % (0.0-7.0); Hematocrit 36.9 % (41.0-53.0); Hemoglobin 12.3 g/dL (13.5-17.5); Lymphocytes % (auto) 11.7 % (10.0-50.0); Mean Corpuscular Hemoglobin 30.2 pg (28.0-32.0); Mean Corpuscular Hgb Conc. 33.3 g/dL (32.0-36.0); Mean Corpuscular Volume 90.9 fL (80.0-100.0); Monocytes # (auto) 1.3 uL; Monocytes % (auto) 7.6 % (0.0-12.0); Neutrophils # (auto) 12.4 uL; Neutrophils % (auto) 74.6 % (37.0-80.0); Nucleated Red Blood Cells % 0.1 %; Platelet Count (auto) 459 10^3/uL (140-450); Red Blood Cells 4.06 10^6/uL (4.5-5.90); Red Cell Distribution Width 13.7 % (11.8-14.3); White Blood Cell 16.7 10^3/uL (4.4-10.8)
[2019-10-07 05:37] LABS: Potassium 3.3 mmol/L (3.5-5.1)
[2019-10-07 05:43] LABS: BUN/Creatinine Ratio 13.5; Calcium 7.4 mg/dL (8.5-10.1)
[2019-10-07] MEDS: DILTIAZEM HCL 50 MG/10 ML VIAL IV SCH ×3 (06:00→12:00)
--- NOTE | 2019-10-07 06:40 | NUR ---
Condition update/ Nausea Pt c/o nauseated, will administer Zofran as order. No vomiting. Pt NPO since midnight for cardioversion plan.
[2019-10-07] MEDS: ONDANSETRON HCL 4 MG/2 ML VIAL IV PRN ×3 (06:58→16:07)
--- NOTE | 2019-10-07 07:08 | NUR ---
called. Dr. Villafuerte called for Pt's update, plan to do Cardioversion today. New orders received, TORB and verified correct. ordered to keep NPO for cardioversion preparation, do not hold Lovenox this morning, add Mg level to am LABs and Potassium IV 40mEQ once.
--- NOTE | 2019-10-07 07:50 | NUR ---
Opening Shift Note Assumed care of patient, awake and alert. No S/S of distress/SOB or pain. Instructed on POC and to call for assist PRN, will continue to monitor for changes Q1hr and PRN. Patient made aware that need to be NPO for possible Cardioversion this morning. His daughter at the bedside as well.
[2019-10-07 08:00] VITALS: BP 117/76
[2019-10-07] MEDS: POTASSIUM CHLORIDE 40 MEQ, LIDOCAINE 1% (LOCAL ANESTH.) 4 ML in SODIUM CHL 0.9% 100 ML IV ONE ×2 (08:00→09:08)
--- NOTE | 2019-10-07 08:00 | NUR ---
IV insertion IV access obtained, via clean sterile technique by inserting 22 gauge catheter at right hand after 1 attempt. IV secured properly. No trauma to site. Patient tolerated procedure well.
[2019-10-07] MEDS: POLYETHYLENE GLYCOL 17 GM PWDR PO SCH (09:03)
[2019-10-07] MEDS: ENOXAPARIN SOD 80 MG/0.8ML SYRINGE SC SCH (09:08)
--- NOTE | 2019-10-07 09:30 | NUR ---
Dr. Galvez at the bedside, seen and examined patient at this time, plan of care discussed with patient and his , MD talked to Dr. Villafuerte on the phone, will plan to do Cardioversion today, patient made aware that and will keep NPO.
[2019-10-07] MEDS: SODIUM CHLORIDE 0.9% 1,000 ML IV SCH (10:08)
--- NOTE | 2019-10-07 10:20 | NUR ---
Patient sitting on the chair, talking to his daughter. No complaining of chest pain or SOB noted.
[2019-10-07] MEDS ORDERED: GASTROGRAFIN 120 ML SOL ONE (10:33)
[2019-10-07 10:36] LABS: Albumin 2.4 g/dL (3.4-5.0)
[2019-10-07 10:39] LABS: Bilirubin, Direct 0.3 mg/dL (0-0.2); Total Protein 5.6 g/dL (6.4-8.2)
[2019-10-07] MEDS ORDERED: LIDOCAINE VISCOUS 2% 15ML UD PO ONE (10:45)
[2019-10-07] MEDS ORDERED: MIDAZOLAM HCL 1MG/1ML-2 ML VIAL ONE (10:52)
[2019-10-07] MEDS ORDERED: fentaNYL CITRATE 100 MCG/2 ML VL ONE (10:52)
--- NOTE | 2019-10-07 11:09 | NUR ---
Called and talked to Dr. Lenny MD made aware that plan to do Cardioversion this morning. Received order for D/C Gastrografin, patient and his daughter made aware.
[2019-10-07] MEDS ORDERED: ONDANSETRON HCL 4 MG/2 ML VIAL ONE (11:14)
[2019-10-07] MEDS ORDERED: diphenhdrAMINE HCL 50 MG/1 ML VL ONE (11:14)
--- NOTE | 2019-10-07 11:15 | NUR ---
Received a call from Dr. Villafuerte, prepare Medication, Zofran, Benadryl, Midazolam, and Fentanyl at the bedside, called the Echo and left the message.
--- NOTE | 2019-10-07 11:53 | NUR ---
ANGELICA WITH CARDIOVERSION; Dr. Villafuerte at bedside for ANGELICA and possible cardioversion. Patient medicated with Versed 1mg and Fentanyl 25 mcg's for ANGELICA, patient tolerated ANGELICA well. ANGELICA clear, Dr. Villafuerte elected to perform cardioversion. Administered additional 25 mcg's of Fentanyl and 2 mg of Versed for cardioversion. Patient received on synchronized shock at 200 Joules, successful cardioversion patient SR 83 with frequent PAC's.
[2019-10-07] MEDS ORDERED: PIPERACILLIN-TAZOB 3.375GM 100 ML IV SCH (12:00)
[2019-10-07] MEDS ORDERED: METOPROLOL TARTRATE 1MG/1ML-5ML VIAL IV ONE (12:15)
[2019-10-07] MEDS ORDERED: fentaNYL CITRATE 100 MCG/2 ML VL IV ONE (12:15)
[2019-10-07] MEDS ORDERED: MIDAZOLAM HCL 1MG/1ML-2 ML VIAL IV ONE (12:15)
[2019-10-07] MEDS ORDERED: ONDANSETRON HCL 4 MG/2 ML VIAL IV ONE (12:15)
--- NOTE | 2019-10-07 12:56 | NUR ---
Received a call from Dr. Villafuerte, received order for Metoprolol 25 mg PO now and then BID. Will carry out.
[2019-10-07] MEDS ORDERED: METOPROLOL TARTRATE 25 MG TAB PO ONE ×2 (13:00→16:00)
--- NOTE | 2019-10-07 13:04 | NUR ---
Patient has orders for home health. Referral sent to [facility] to arrange [phone]; asked for them to call with an update of delegated home health.
--- NOTE | 2019-10-07 13:08 | NUR ---
Dr. Kowalski at the bedside, seen patient and discussed the plan of care with patient and his daughter at the bedside. Will start diet now.
--- NOTE | 2019-10-07 13:45 | NUR ---
Patient sitting on the bed, his daughter helping with Lunch, patient able to swallow well no coughing or aspiration noted.
--- NOTE | 2019-10-07 14:15 | NUR ---
Ryan Villafuerte regarding transfer and confirming with medications, waiting MD to call back. Addendum: 10/07/19 at 1829 by ROBBIE PAVON RN RN Got an order from Dr. Galvez for transfer to [facility] per Edith frye MD.
--- NOTE | 2019-10-07 15:50 | NUR ---
Received a call back to Dr. Villafuerte, received order for Amiodarone 200 mg PO once now then stop Amiodarone IV drip. Metoprolol 25 mg PO now then increase Metoprolol 50mg PO BID, stop Lovenox and start Eliquis 5 mg PO BID, stop Metoprolol IV , stop Diltiazem IV. Patient and his daughter made aware.
[2019-10-07] MEDS ORDERED: AMIODARONE HCL 200 MG TAB PO ONE (16:00)
[2019-10-07] MEDS ORDERED: METOPROLOL TARTRATE 50 MG TAB PO ONE (16:00)
--- NOTE | 2019-10-07 17:01 | NUR ---
Amiodarone 200 mg PO once dose given at this time, D/C amiodarone IV drip now. Will continue to monitor and care.
--- NOTE | 2019-10-07 18:25 | NUR ---
Updated patient's condition to Dr. Villafuerte, HR 90-100 with SR and rare PAC, SBP 110-130 mmHg, received order for Amiodarone 200 mg PO BID, and okay to transfer to Tele. Patient and his daughter made aware.
--- NOTE | 2019-10-07 18:57 | NUR ---
Warm pack provided for left shoulder pain, patient had Dinner around 50%, no N/V noted.
[2019-10-07 20:00] VITALS: BP 131/70
--- NOTE | 2019-10-07 20:44 | NUR ---
Pt resting in bed without complaint, vs stable, RSR on child monitor.
[2019-10-07] MEDS: AMIODARONE HCL 200 MG TAB PO SCH (21:02)
[2019-10-07] MEDS: APIXABAN 5 MG TAB PO SCH (21:02)
[2019-10-07] MEDS: METOPROLOL TARTRATE 50 MG TAB PO SCH (21:03)
[2019-10-07] MEDS ORDERED: METOPROLOL TARTRATE 25 MG TAB PO SCH (22:00)
[2019-10-07] MEDS ORDERED: TEMAZEPAM 15 MG CAP PO SCH (22:00)
[2019-10-08] VITALS: BP 137/76
--- NOTE | 2019-10-08 01:50 | NUR ---
ELIMINATION: Pt assisted to restroom for elimination. Pt had a large, liquid bowel movement. Pt assisted back to bed without incident.
[2019-10-08] MEDS: HYDROcodone-ACET 10/325MG TAB PO PRN ×2 (02:06→10:27)
--- NOTE | 2019-10-08 02:06 | NUR ---
PAIN: Pt c/o pain in abdomen at incisional site at level 9/10. Pt requesting medication for pain. Pt medicated w/ [place] 10/325mg PO as per order. To continue to monitor pt.
[2019-10-08 04:00] VITALS: BP 125/68
[2019-10-08 05:58] LABS: Basophils # (auto) 0.1 uL; Basophils % (auto) 0.5 % (0.0-2.0); Eosinophils % (auto) 6.6 % (0.0-7.0); Hematocrit 34.7 % (41.0-53.0); Hemoglobin 11.7 g/dL (13.5-17.5); Lymphocytes # (auto) 1.8 uL; Lymphocytes % (auto) 11.3 % (10.0-50.0); Mean Corpuscular Hemoglobin 30.9 pg (28.0-32.0); Mean Corpuscular Hgb Conc. 33.8 g/dL (32.0-36.0); Mean Corpuscular Volume 91.3 fL (80.0-100.0); Monocytes # (auto) 1.5 uL; Monocytes % (auto) 9.5 % (0.0-12.0); Neutrophils # (auto) 11.4 uL; Neutrophils % (auto) 72.1 % (37.0-80.0); Platelet Count (auto) 401 10^3/uL (140-450); Red Cell Distribution Width 13.8 % (11.8-14.3); White Blood Cell 15.8 10^3/uL (4.4-10.8)
[2019-10-08 06:20] LABS: Calcium 7.3 mg/dL (8.5-10.1); Magnesium 1.6 mg/dL (1.6-2.6); Potassium 3.8 mmol/L (3.5-5.1)
[2019-10-08 06:23] LABS: BUN/Creatinine Ratio 17.7
--- NOTE | 2019-10-08 07:50 | NUR ---
OPENING Report received from Alem TAYLOR. Care initiated and initial assessment complete.
[2019-10-08 08:15] VITALS: BP 137/79
[2019-10-08] MEDS ORDERED: AMIO200T4 PO (08:52)
[2019-10-08] MEDS ORDERED: MET50T PO (08:52)
[2019-10-08] MEDS ORDERED: APIX5TAB PO (08:52)
--- NOTE | 2019-10-08 08:53 | NUR ---
Assessment Pt is a 69 yr old alert and oriented male. Pt was doing a breathing tx and gave permission for his Daughter, Becky, at bedside to answer the questions, she is also his emergency contact at [phone]. Prior to admit, pt lived alone, was ambulatory and independent with ADL's and used no DME. Pt stated that he has a walker and can use it if feeling week upon d/c. Pt's Primary is Dr. Morales, has no AD, receives [employer] income, with no HH prior to admit. Pt would benefit from a HH referral for home safety eval, PT and nursing technician. Pt was understanding and agreeable to d/c plan. Pt's daughter will transport him home upon d/c. Pt will d/c home with home health upon d/c. No other needs assessed. Addendum: 10/08/19 at 0902 by GRISEL MOSQUEDA Amended: Links added.
[2019-10-08] MEDS ORDERED: DIPH25CA66 PO (08:57)
[2019-10-08] MEDS: APIXABAN 5 MG TAB PO SCH (09:32)
[2019-10-08] MEDS: AMIODARONE HCL 200 MG TAB PO SCH (09:32)
[2019-10-08] MEDS: METOPROLOL TARTRATE 50 MG TAB PO SCH (09:33)
[2019-10-08 09:48] VITALS: BP 137/79
[2019-10-08] MEDS: POLYETHYLENE GLYCOL 17 GM PWDR PO SCH (10:00)
[2019-10-08] MEDS ORDERED: MAGNESIUM OXIDE 400 MG TAB PO SCH (10:00)
--- NOTE | 2019-10-08 10:30 | NUR ---
DISCHARGE Went over discharge packet with patient. All questions addressed with patient and his daughter Becky. Informed of follow-up appointment and provided copy.
--- NOTE | 2019-10-08 11:00 | NUR ---
DRESSINGS CHANGED Wound care provided per MD order. Patient tolerated well and verbalized dressing care instructions. Follow up in clinic as directed. See e-MAR for medications given during this visit.
--- NOTE | 2019-10-08 11:23 | NUR ---
IV removal Two IVs DC'd with sterile technique, catheters fully intact. Pressure dressings applied to sites. Patient tolerated procedures well. Discharged with aftercare instructions per MD.
--- NOTE | 2019-10-08 11:57 | NUR ---
DISCHARGED Patient moved out in wheelchair with daughter Becky at his side.
[2019-10-08] MEDS ORDERED: MAGN400T40 PO (17:42)
[2019-10-08] MEDS ORDERED: POTA1TAB64 PO (17:42)
== END 2019-10-08 12:04 | disposition home health service (06) | DRG 309 ==
LOC: TELE-WESTW 18:11 → DOU IN ICU 10-06 22:27
PROVIDERS: ADMIT Internal Medicine; ATTEND Internal Medicine
DX: I48.91 Unspecified atrial fibrillation (principal); K56.7 Ileus, unspecified; F11.90 Opioid use, unspecified, uncomplicated; K21.9 Gastro-esophageal reflux disease without esophagitis; I25.10 Atherosclerotic heart disease of native coronary artery without angina pectoris; I10 Essential (primary) hypertension; E78.5 Hyperlipidemia, unspecified; D72.829 Elevated white blood cell count, unspecified; Z82.49 Family history of ischemic heart disease and other diseases of the circulatory system; Z83.3 Family history of diabetes mellitus; Z98.61 Coronary angioplasty status; Z79.01 Long term (current) use of anticoagulants
CPT/HCPCS: 36415; 71045; 74018; 74021; 74177; 76705; 80048; 80053; 80076; 81001; 83605; 83690; 83735; 84132; 84146; 85014; 85018; 85025; 85610; 87040; 87081; 93312; G0378; J0696; J2001; J2250; J2405; J3480